=== PATIENT | female | born 1960 | race Two or more races ===

== ENCOUNTER 2016-12-01 19:14 | Emergency (ER) | payer MEDICAID ==
[~2016-12-01] VITALS: Ht 165.1 cm; Wt 77.1 kg
[2016-12-01 20:02] LABS: Basophils # (auto) 0.1 uL; Basophils % (auto) 0.6 % (0.0-2.0); Eosinophils # (auto) 0 uL; Eosinophils % (auto) 0.5 % (0.0-7.0); Hematocrit 43.4 % (36.0-46.0); Hemoglobin 14.3 g/dL (12.2-16.2); Lymphocytes # (auto) 3.3 uL; Lymphocytes % (auto) 30.8 % (10.0-50.0); Mean Corpuscular Hemoglobin 31.6 pg (28.0-32.0); Mean Corpuscular Hgb Conc. 32.9 g/dL (32.0-36.0); Mean Corpuscular Volume 96.2 fL (80.0-100.0); Mean Platelet Volume 10.6 fL (6.9-10.8); Monocytes # (auto) 0.6 uL; Monocytes % (auto) 5.7 % (0.0-12.0); Neutrophils # (auto) 6.7 uL; Neutrophils % (auto) 62.4 % (37.0-80.0); Platelet Count (auto) 198 10^3/uL (140-450); Red Cell Distribution Width 12.6 % (11.8-14.3); White Blood Cell 10.7 10^3/uL (4.4-10.8)
[2016-12-01 20:10] LABS: INR 0.96 (0.9-1.15); Partial Thromboplastin Time 22.2 sec (22.64-33.71); Prothrombin Time 10.5 sec (9.37-12.3)
[2016-12-01 20:16] LABS: B-Type Natriuretic Peptide 49.8 pg/mL (0-100)
[2016-12-01 20:23] LABS: Alkaline Phosphatase 82 U/L (45-117); Anion Gap 9 (5-15); Aspartate Aminotransferase 20 U/L (15-37); BUN/Creatinine Ratio 19.2; Bilirubin, Total 0.3 mg/dL (0.2-1.0); Blood Urea Nitrogen 10 mg/dL (7-18); Calcium 9.6 mg/dL (8.5-10.1); Carbon Dioxide 25 mmol/L (21-32); Chloride 105 mmol/L (98-107); GFR African American 157 mL/min; GFR Non-African American 130 mL/min; Glucose 100 mg/dL (74-106); Magnesium 2.5 mg/dL (1.6-2.6); Potassium 3.8 mmol/L (3.5-5.1); Sodium 139 mmol/L (136-145); Total Protein 8.3 g/dL (6.4-8.2)
[2016-12-01 20:27] LABS: Urine Bilirubin Negative (Negative); Urine Blood Negative /uL (Negative); Urine Color Yellow (Yellow); Urine Glucose Normal (Normal); Urine Ketone Negative (Negative); Urine Mucus FEW (None Seen); Urine Nitrite Negative (Negative); Urine RBC 1 /hpf (0 - 4); Urine Squamous Epithelial Cell FEW /hpf (<5); Urine Urobilinogen Normal (Negative); Urine pH 7.5 (5.0-8.0)
[2016-12-01 20:42] LABS: Temperature: 22.7 C (20.0-25.0)
[2016-12-01 22:33] VITALS: BP 176/77
[2016-12-01] MEDS ORDERED: ONDANSETRON ODT 4 MG TAB PO ONE (23:00)
[2016-12-01] MEDS ORDERED: MECLIZINE HCL 25 MG TAB PO ONE (23:00)
== END 2016-12-01 23:28 | disposition home or self-care (01) ==
LOC: ER 19:15
DX: R42 Dizziness and giddiness (principal); R74.8 Abnormal levels of other serum enzymes
CPT/HCPCS: 36415; 71010; 80053; 81001; 81025; 83735; 83880; 84484; 85025; 85610; 85730; 93005; 99285; J8597; Q0162

== ENCOUNTER → 2019-09-01 | Emergency (ER) | payer OTHER, MEDICAID ==
[~2019-09-01] VITALS: Ht 165.1 cm; Wt 77.1 kg
[2019-09-01 11:54] VITALS: BP 161/85
== END | disposition home or self-care (01) ==
LOC: ER 11:41
DX: S29.012A Strain of muscle and tendon of back wall of thorax, initial encounter (principal); S20.219A Contusion of unspecified front wall of thorax, initial encounter; V43.62XA Car passenger injured in collision with other type car in traffic accident, initial encounter; Y93.89 Activity, other specified; Y92.410 Unspecified street and highway as the place of occurrence of the external cause; Y99.8 Other external cause status
CPT/HCPCS: 71046